=== PATIENT | female | born 1995 | race Caucasian/White ===

== ENCOUNTER → 2017-12-22 09:29 | Outpatient (POV) | payer MEDICAID, SELFPAY | PROVIDERS: Visit Provider Dentist | DX: Z00.00 Encounter for general adult medical examination without abnormal findings (principal) ==

== ENCOUNTER 2021-04-15 08:11 | Inpatient (IN) | payer MEDICAID, SELFPAY ==
[2021-04-15 08:12] VITALS: BP 131/93; PULSE 107; RESP 17; TEMP 37.2; O2SAT 98; BMI 38.9
--- NOTE | 2021-04-15 08:26 | HMH.EDGENADL ---
ED Disposition Clinical Impression: Peritonsillar abscess Disposition: Admitted as Observation Condition on Discharge: Fair - Critical Care Critical Care Time: No Attestation: On 04/15/21, the high probability of a clinically significant, sudden or life threatening deterioration of the following system(s) required my full and direct attention, intervention and personal management. The time I documented below is in addition to time spent performing reported procedures but includes the following listed in this critical care notation. Medical Decision Making - Zhang Inquiry Pt receiving controlled substance: No Zhang was queried for this patient: No Vital Signs: 04/15/21 08:12 04/15/21 12:00 Temperature 99.0 F 98.9 F Temperature Source Oral Oral Pulse Rate 97 H Pulse Rate [Right] 107 H Respiratory Rate 17 16 Blood Pressure 145/71 H Blood Pressure [Right Arm] 131/93 H Blood Pressure Mean [Right Arm] 105 02 Sat by Pulse Oximetry 98 - Lab Data Lab Results 04/15/21 08:49: Group A Strep Rapid Negative 04/15/21 08:49: SARS-CoV-2 (PCR) Not detected, Influenza A Untype (PCR) Not detected, Influenza Type B (PCR) Not detected 04/15/21 08:55: Sodium 141, Potassium 4.0, Chloride 101, Carbon Dioxide 29, Anion Gap 15.0, BUN 9, Creatinine 0.60, Estimated Creat Clear 224, Estimated GFR 121, Est GFR ( Amer) 146, Glucose 88, Calcium 9.6 04/15/21 08:55: WBC 10.8, RBC 4.84, Hgb 14.3, Hct 42.1, MCV 87.0, MCH 29.5, MCHC 33.9, RDW 13.1, Plt Count 271, MPV 8.2, Neut % (Auto) 76.6, Lymph % (Auto) 16.5, [place] % (Auto) 5.9, Eos % (Auto) 0.6, Baso % (Auto) 0.6, Neut # (Auto) 8.2 H, Lymph # (Auto) 1.8, [place] # (Auto) 0.6, Eos # (Auto) 0.1, Baso # (Auto) 0.1 04/15/21 08:55: Serum HCG, Qual Negative Result diagrams: 04/15/21 08:55 04/15/21 08:55 Orders (Tests/Meds): ED MEDICATIONS Generic Name Dose Route Start Last Admin Trade Name Preet PRN Reason Stop Dose Admin Sodium Chloride 1,000 mls @ 150 mls/hr 04/15/21 12:11 04/15/21 15:05 Sod Chlor 0.9% 1000ml Bag IV 05/15/21 12:10 150 mls/hr .[id number] ADRIENNE Administration Clindamycin Phosphate 600 mg/ 104 mls @ 100 mls/hr 04/15/21 15:00 04/15/21 16:09 Sodium Chloride IV 04/29/21 14:59 100 mls/hr Q6H ADRIENNE Administration Protocol Morphine Sulfate 4 mg 04/15/21 12:11 Morphine 4mg/Ml Syringe IV 05/15/21 12:10 Q4HP PRN Severe Pain Ondansetron HCl 4 mg 04/15/21 12:11 Ondansetron 4mg/2ml Vial IV 05/15/21 12:10 Q8HP PRN Nausea Discontinued Medications Generic Name Dose Route Start Last Admin Trade Name Preet PRN Reason Stop Dose Admin Dexamethasone Sodium Phosphate 10 mg 04/15/21 08:43 04/15/21 09:01 Dexamethasone 4mg/Ml 1ml Vial IV 04/15/21 08:44 10 mg ONCE ONE Administration Clindamycin Phosphate 600 mg/ 104 mls @ 100 mls/hr 04/15/21 08:52 04/15/21 09:07 Sodium Chloride IV 04/15/21 09:54 100 mls/hr ONCE ONE Administration Protocol Iopamidol 75 ml 04/15/21 10:00 04/15/21 10:01 Iopamidol-370 (76%);100ml Bottle IV 04/15/21 10:01 75 ml ONCE ONE Administration Ketorolac Tromethamine 30 mg 04/15/21 08:43 04/15/21 09:01 Ketorolac 30mg/Ml Vial IV 04/15/21 08:44 30 mg ONCE ONE Administration Sodium Chloride 1,000 ml 04/15/21 08:43 04/15/21 09:00 Sodium Chloride 0.9% 1000ml Bag IV 04/15/21 08:44 1,000 ml BOLUS ONE Administration Sodium Chloride 10 ml 04/15/21 10:00 04/15/21 10:01 Sodium Chloride 0.9% 10ml Syr (Rad Only) IV 04/15/21 10:01 10 ml ONCE ONE Administration ORDERS Category Date Time Status Consult to ENT [CONS] Routine Cons 04/15/21 10:49 Active Strep Screen Confirmation Stat Micro 04/15/21 08:49 Received - CT Data CT Scan: Other (soft tissue neck) Time Received: 10:[address] Reviewed: Yes: I have viewed the radiologist's interpretation Findings Narrative: PROCEDURE: CT SOFT TISSUE NECK W CON CLINICAL HISTORY: r/o per
--- NOTE | 2021-04-15 08:42 | CT_ITS ---
PROCEDURE: CT SOFT TISSUE NECK W CON CLINICAL HISTORY: r/o peritonsillar abscess COMPARISON: CT NECKW CT SOFT TISSUE NECK W/CONTRAST from 04/15/2013 TECHNIQUE: IV Contrast: 75 cc Optiray 350 Axial images obtained with sagittal and coronal reformats. All CT scans at the facility use one or more dose reduction, viz: automated exposure control, ma/kV adjustment per patient size (including targeted exams where dose is matched to indication, i.e. head), or iterative reconstruction technique. FINDINGS: There are bilateral peritonsillar fluid collections, on the right measuring 2.5 centimeters x 1.2 centimeters, and on the left measuring 2 centimeter x 1 centimeter. There are a few small air bubbles within the left peritonsillar fluid collection. There is slight mass effect on uvula at the level of the peritonsillar fluid collections. Epiglottis and aryepiglottic fold regions appear normal. There are a few small nonspecific bilateral cervical chain and submandibular lymph nodes likely reactive right greater than left. Salivary glands are normal. No intracranial abnormality. Orbits and globes are normal. Bilateral mucosal thickening in the maxillary sinuses. Thyroid gland is normal. No acute bony abnormality. Lung apices show no discrete abnormality. IMPRESSION: Bilateral peritonsillar fluid collections, right greater than left, compatible with bilateral peritonsillar abscesses, slight mass effect on the uvula at the level of the fluid collections. A few small non-specific bilateral cervical chain and submandibular lymph nodes, likely reactive. Dictated by: Alfonzo Aviles MD 04/15/2021 10:22 Alfonzo Aviles MD in [place] 04/15/2021 10:22
[2021-04-15 09:07] LABS: Coronavirus 19, PCR Not Detected (NotDetected); Influenza A, PCR Not Detected (NotDetected); Influenza B, PCR Not Detected (NotDetected)
[2021-04-15 09:09] LABS: Basophils # 0.1 K/mm3 (0-0.2); Basophils % 0.6 % (0.1-2.0); Eosinophils # 0.1 K/mm3 (0.0-0.4); Eosinophils % 0.6 % (0.1-12.0); Hematocrit 42.1 % (37.0-47.0); Hemoglobin 14.3 g/dL (12.2-16.2); Lymphocytes # 1.8 K/mm3 (0.7-4.5); Lymphocytes % 16.5 % (10-50); Mean Corpuscular HGB Conc 33.9 g/dL (31.8-35.4); Mean Corpuscular Hemoglobin 29.5 pg (27.0-31.2); Mean Platelet Volume 8.2 fl (7.4-10.4); Monocytes # 0.6 K/mm3 (0.1-1.0); Monocytes % 5.9 % (1.7-9.3); Neutrophils # 8.2 K/mm3 (1.8-7.8); Neutrophils % 76.6 % (37.0-80.0); Platelet Count 271 K/mm3 (142-424); Red Blood Count 4.84 M/mm3 (4.20-5.40); Red Cell Distribution Width 13.1 % (11.5-17.5); White Blood Count 10.8 K/mm3 (4.8-10.8)
[2021-04-15 09:22] LABS: Chloride 101 mmol/L (98-107); Sodium 141 mmol/L (136-145)
[2021-04-15 09:25] LABS: Blood Urea Nitrogen 9 mg/dl (7-17); Carbon Dioxide 29 mmol/L (22.0-30.0); Creatinine Clearance Estimated 224 mL/min (50-200); Estimated Glomerular Filt Rate 121 ml/min (>60); GFR (African American) 146 ML/MIN (>60)
[2021-04-15 09:26] LABS: Calcium 9.6 mg/dl (8.4-10.2); Glucose 88 mg/dl (74-100)
[2021-04-15 09:27] LABS: HCG Qualitative, Serum Negative (Negative)
[2021-04-15 09:28] LABS: Strep Scrn Group A (Rapid) Negative (Negative)
--- NOTE | 2021-04-15 10:40 | PC.NURSE ---
DR. BELL CONSULTED WITH DR. LALA
--- NOTE | 2021-04-15 10:42 | PC.NURSE ---
DR. BELL CONSULTING WITH DR. MEDRANO AT THIS TIME
--- NOTE | 2021-04-15 11:26 | PC.NURSE ---
spoke with house principal at this time she is calling to have pt admitted in the system at this time.
[2021-04-15 11:57] VITALS: BMI 39.1
[2021-04-15 12:00] VITALS: BP 145/71; PULSE 97; RESP 16; TEMP 37.2; O2SAT 98
--- NOTE | 2021-04-15 12:33 | HMH.HP ---
*Admission Date: 04/15/21 *Chief complaint: sore throat *History of present illness: Ms. Mccloud is a 25 yo female with a 3-day history of a right-sided sore throat that radiates into her right ear. She states she saw a physician and her primary care office on Tuesday and she was started on Zithromax. She was unable to swallow the pill. She saw her family physician on Tuesday and was sent for an ultrasound. She had the ultrasound yesterday and was informed that there was no peritonsillar abscess. This morning she woke up and was unable to open her mouth, swallow pills, or eat solid foods. She denies any fever. She was previously given an injection of Rocephin, but has been unable to swallow the Zithromax or the steroids that she was given by her PCP. She states she has had problems with her tonsils ever since she was young. She has had recurrent strep throat and back in 2012 she had an abscess of her tongue. 2 years ago she had a very similar situation where she had a very sore throat and was unable to open her mouth. She states she was on numerous antibiotics for weeks before she finally improved. She had a soft tissue CT of the neck in the ER showing bilateral peritonsilar abscesses. She was started on IV antibiotics and steroids and was given toradol for pain. Dr. Waggoner was consulted. [facility] History I have reviewed the patient's past medical history: Yes Medical History: Reports:: Anxiety, Depression Denies:: Chronic Obstructive Pulmonary Disease (COPD), Diabetes Mellitus Type 2, Hyperlipidemia, Hypertension *Have you ever received a pneumonia vaccine?: No *Have you received a flu vaccine this season?: No Other Medical History: Reports: Other (Chiari malformation) Other Surgeries: Yes: Other ([place] teeth, cyst removed from tailbone) - *Social History Smoking Status: Current every day smoker Tobacco Type: cigarettes Alcohol Intake: never *Occupational Status:: unemployed *Travel in the last 8 weeks: None Family Hx:: Heart Attack, Hyperlipidemia, Hypertension, Stroke Review of Systems - Constitutional Denies chills, Denies fever(s), Denies weakness - Eyes Denies blurry vision, Denies double vision - ENT Reports pain with swallowing, Reports sore throat, Denies nasal congestion - *Cardiovascular Denies chest pain, Denies shortness of breath - *Respiratory Denies chest congestion, Denies cough, Denies shortness of breath - *Gastrointestinal Denies abdominal pain, Denies loose stools, Denies nausea, Denies vomiting - *Genitourinary Denies difficulty urinating, Denies painful urination - *Musculoskeletal Denies joint pain - *Neurologic Reports headache(s), Denies dizziness, Denies weakness Meds Home Medications Medication Instructions Recorded Confirmed Type Azithromycin 250 mg PO DAILY 04/15/21 04/15/21 History Cyanocobalamin (Vitamin B-12) 1 ml IM WEEKLY 04/15/21 04/15/21 History [Cyanocobalamin 1,000mcg/mL Vial] Multivit-Min/Ferrous Fumarate 15 mg PO DAILY 04/15/21 04/15/21 History [Multivitamin with Minerals Tab] Omeprazole 40 mg PO DAILY 04/15/21 04/15/21 History predniSONE [Deltasone 20mg 20 mg PO BID 04/15/21 04/15/21 History tablet] Allergies Allergy/AdvReac Type Severity Reaction Status Date / Time sulfamethoxazole Allergy Mild Nausea Verified 04/15/21 12:20 [From Bactrim] trimethoprim [From Bactrim] Allergy Mild Nausea Verified 04/15/21 12:20 Penicillins Allergy Unknown Unknown Verified 04/15/21 12:20 allergy reaction ciprofloxacin Allergy Unknown Verified 04/15/21 12:20 allergy reaction Exam Vital signs and Labs for Last 24 Hours: Temp Pulse Resp BP Pulse Ox 98.9 F 97 H 16 145/71 H 98 04/15/21 12:00 04/15/21 12:00 04/15/21 12:00 04/15/21 12:00 04/15/21 08:12 Laboratory Results - last 24 hr 04/15/21 08:49: Group A Strep Rapid Negative 04/15/21 08:49: SARS-CoV-2 (PCR) Not detected, Influenza A Untype (PCR) Not detected, I
[2021-04-15 12:37] VITALS: BP 115/66; PULSE 106; RESP 18; TEMP 37.2; O2SAT 100
--- NOTE | 2021-04-15 14:13 | HMH.PHAVTE ---
[facility] Pharmacy VTE Monitoring - Patient Demographics Admission date: 04/15/21 Report Date: 04/15/21 Time: 14:13 Allergies/Adverse Reactions: Patient Allergies sulfamethoxazole [From Bactrim] Allergy (Mild, Verified 04/15/21 12:20) Nausea trimethoprim [From Bactrim] Allergy (Mild, Verified 04/15/21 12:20) Nausea Penicillins Allergy (Unknown, Verified 04/15/21 12:20) Unknown allergy reaction ciprofloxacin Allergy (Verified 04/15/21 12:20) Unknown allergy reaction Height: 1.6 m Weight: 100.244 kg Patient Problems: Current Active Problems Peritonsillar abscess (Acute) Anxiety (Chronic) - VTE Risk Labs: VTE Related Lab Results Hgb 14.3 g/dL (12.2-16.2) 04/15/21 08:55 Hct 42.1 % (37.0-47.0) 04/15/21 08:55 Plt Count 271 K/mm3 (142-424) 04/15/21 08:55 BUN 9 mg/dl (7-17) 04/15/21 08:55 Creatinine 0.60 mg/dl (0.52-1.04) 04/15/21 08:55 Estimated Creat Clear 224 mL/min (50-200) 04/15/21 08:55 Was VTE Risk Assessment Performed: Yes VTE Score: 0 VTE Risk Level: Very Low Risk Clinical Trial Participant: No - Prophylaxis VTE Prophylaxis Ordered?: Yes Types of VTE Prophylaxis: TEDS Knee High
[2021-04-15 15:00] VITALS: BP 119/62; PULSE 91; RESP 18; TEMP 37.3; O2SAT 100
--- NOTE | 2021-04-15 16:31 | PC.NURSE ---
PT IS RESTING IN BED WITH FAMILY IN THE ROOM. NO COMPLAINTS OF PAIN. SINCE ARRIVING TO THE FLOOR PT HAS BEEN ABLE TO TOLERATE FULL LIQUIDS. PT STATES THE RT SIDE OF HER THROAT IS MORE TENDER THAN THE LEFT. RT SIDE IS MORE SWOLLEN THAN THE LEFT (ASSESSED WITH ) PT STATED SHE DID HAVE SOME DRAINAGE THIS MORNING BEFORE COMING TO THE HOSPITAL AND WAS UNABLE TO SWALLOW PILLS. PT WILL BE NPO AFTER MIDNIGHT FOR CONSULT IN THE MORNING. LUNG SOUNDS CLEAR. ABDOMEN SOFT/NON TENDER WITH ACTIVE BOWEL SOUNDS. AMBULATES TO THE BATHROOM AND AROUND THE ROOM W/O DIFFICULTY. PT WAS ABLE TO TOLERATE TAKING A SHOWER THIS SHIFT.
[2021-04-15 19:41] VITALS: BP 124/75; PULSE 92; RESP 18; TEMP 36.9; O2SAT 99
--- NOTE | 2021-04-16 03:36 | PC.NURSE ---
Pt rested well all shift. No acute changes. Pt is A/O x4. Lungs are CTA. Pt denies pain. Admin meds per MAR. Pt had tolerated full liquids diet, and has been NPO since midnight. Pt is to have a consult this morning with . VSS, pt is able to make needs known to staff. Call light within reach, No concerns at this time.
[2021-04-16 04:00] VITALS: BP 106/59; PULSE 95; RESP 17; TEMP 37; O2SAT 100
[2021-04-16 05:31] VITALS: BMI 38.4
[2021-04-16 07:56] VITALS: BP 112/55; PULSE 86; RESP 16; TEMP 36.9; O2SAT 100
--- NOTE | 2021-04-16 08:21 | P.PN_ITS ---
Internal Medicine - PN: Subj *Date: 04/16/21 *Time: 08:21 Interval history: Patient states her pain is improved slightly from yesterday. She still has pain on the right side and into her right ear that runs down her throat. She was able to sleep a little bit better last night. She is still unable to open her mouth. Exam Vital signs and Labs for Last 24 Hours: Temp Pulse Resp BP Pulse Ox 98.5 F 86 16 112/55 L 100 04/16/21 07:56 04/16/21 07:56 04/16/21 07:56 04/16/21 07:56 04/16/21 07:56 Laboratory Results - last 24 hr 04/15/21 08:49: Group A Strep Rapid Negative 04/15/21 08:49: SARS-CoV-2 (PCR) Not detected, Influenza A Untype (PCR) Not detected, Influenza Type B (PCR) Not detected 04/15/21 08:55: Sodium 141, Potassium 4.0, Chloride 101, Carbon Dioxide 29, Anion Gap 15.0, BUN 9, Creatinine 0.60, Estimated Creat Clear 224, Estimated GFR 121, Est GFR ( Amer) 146, Glucose 88, Calcium 9.6 04/15/21 08:55: WBC 10.8, RBC 4.84, Hgb 14.3, Hct 42.1, MCV 87.0, MCH 29.5, MCHC 33.9, RDW 13.1, Plt Count 271, MPV 8.2, Neut % (Auto) 76.6, Lymph % (Auto) 16.5, [place] % (Auto) 5.9, Eos % (Auto) 0.6, Baso % (Auto) 0.6, Neut # (Auto) 8.2 H, Lymph # (Auto) 1.8, [place] # (Auto) 0.6, Eos # (Auto) 0.1, Baso # (Auto) 0.1 04/15/21 08:55: Serum HCG, Qual Negative I & O for Last 24 hours: Intake & Output 04/13/21 04/14/21 04/15/21 04/16/21 11:59 11:59 11:59 11:59 Intake Total 360 / 360 Balance 360 / 360 Weight 221 lb 217 lb - Constitutional no acute distress - *Routine HEENT Exam Comments: Still unable to open mouth due to pain - *Routine Neck Exam Present: supple. Absent: lymphadenopathy - *Routine Respiratory Exam Present: CTA bilaterally - *Routine Cardiovascular Exam Present: RRR - *Routine Abdominal Exam Present: soft, normoactive bowel sounds. Absent: tenderness - *Routine Extremities Exam Absent: cyanosis, clubbing, edema - *Routine Skin Exam Present: warm. Absent: rash - *Routine Neurological Exam Present: alert, oriented X3 Assessment and Plan (1) Peritonsillar abscess Status: Acute Category: Medical Code(s): J36 - Peritonsillar abscess (2) Anxiety Status: Chronic Category: Medical Code(s): F41.9 - Anxiety disorder, uns pecified - Assessment and plan all Dx Assessment and Plan for all problems:: We will continue IV antibiotics. Dr. Waggoner to see patient today.
--- NOTE | 2021-04-16 10:27 | HMH.CONS ---
*Admission Date: 04/15/21 *Reason for consult:: possible right sided tonsillar abscess *History of present illness: x5 days [facility] History Medical History: Reports:: Anxiety, Depression Denies:: Cancer, Chronic Obstructive Pulmonary Disease (COPD), Diabetes Mellitus Type 1, Diabetes Mellitus Type 2, Hyperlipidemia, Hypertension, MRSA *Have you ever received a pneumonia vaccine?: No *Have you received a flu vaccine this season?: No Other Medical History: Reports: Other (Chiari malformation) Other Surgeries: Yes: Other ([place] teeth, cyst removed from tailbone) Amputation: No Fractures: No - *Social History Last grade of school completed: High school graduate Smoking Status: Former smoker Tobacco Type: cigarettes Alcohol Intake: never *Occupational Status:: unemployed Housing: apartment Household Members: friend(s) *Travel in the last 8 weeks: None - Psychiatric History Pschychiatric History:: Reports:: Anxiety, Depression Family Hx:: Heart Attack, Hyperlipidemia, Hypertension, Stroke Review of Systems - *Neurologic Reports headache(s), Denies dizziness, Denies weakness Meds Home Medications Medication Instructions Recorded Confirmed Type Azithromycin 250 mg PO DAILY 04/15/21 04/15/21 History Cyanocobalamin (Vitamin B-12) 1 ml IM WEEKLY 04/15/21 04/15/21 History [Cyanocobalamin 1,000mcg/mL Vial] Multivit-Min/Ferrous Fumarate 1 tab PO DAILY 04/15/21 04/15/21 History [Multivitamin with Minerals Tab] Omeprazole 40 mg PO DAILY 04/15/21 04/15/21 History predniSONE [Deltasone 20mg 20 mg PO BID 04/15/21 04/15/21 History tablet] Allergies Allergy/AdvReac Type Severity Reaction Status Date / Time sulfamethoxazole Allergy Mild Nausea Verified 04/15/21 12:20 [From Bactrim] trimethoprim [From Bactrim] Allergy Mild Nausea Verified 04/15/21 12:20 Penicillins Allergy Unknown Unknown Verified 04/15/21 12:20 allergy reaction ciprofloxacin Allergy Unknown Verified 04/15/21 12:20 allergy reaction Exam Vital signs and Labs for Last 24 Hours: Temp Pulse Resp BP Pulse Ox 98.5 F 86 16 112/55 L 100 04/16/21 07:56 04/16/21 07:56 04/16/21 07:56 04/16/21 07:56 04/16/21 07:56 I & O for Last 24 hours: Intake & Output 04/13/21 04/14/21 04/15/21 04/16/21 23:59 23:59 23:59 23:59 Intake Total 360 / 360 Balance 360 / 360 Weight 221 lb 217 lb - *Routine HEENT Exam Eye: Present: PERRL ENT: Present: mucous membranes moist Comments: This patient was referred from the emergency room because of a worsening sore throat with developing trismus and a possible right tonsillar abscess. She was started on IV antibiotics and when examined the following morning the trismus was less pronounced and she was able to open her mouth better and she was feeling better. Examination revealed some minimal cellulitis around the right tonsil with acute inflammation of both tonsils, there was no cervical lymphadenopathy. Given this history of recurrent acute tonsillitis in the cellulitis in the right tonsillar area with possible incipient abscess it she would be well advised to have a tonsillectomy. Once her condition stabilizes and she finishes her course of the antibiotics she will follow-up in the clinic and we will schedule a tonsillectomy for her. Internal Medicine - CN: Reslt - Labs CBC & Chem 7: 04/15/21 08:55 04/15/21 08:55 Assessment and Plan (1) Peritonsillar abscess Status: Acute Category: Medical Code(s): J36 - Peritonsillar abscess (2) Anxiety Status: Chronic Category: Medical Code(s): F41.9 - Anxiety disorder, unspecified
--- NOTE | 2021-04-16 11:42 | PC.NURSE ---
Report given Trevor Lang RN.
[2021-04-16 15:42] VITALS: BP 102/57; PULSE 86; RESP 17; TEMP 36.8; O2SAT 100
--- NOTE | 2021-04-16 18:30 | PC.NURSE ---
Pt independent w/ ADL's. Showered, received linen change. No complaints voiced. Tolerating full liquid. Call gene w/in reach.
[2021-04-16 19:50] VITALS: BP 100/55; PULSE 76; RESP 18; TEMP 36.9; O2SAT 100
--- NOTE | 2021-04-17 02:56 | PC.NURSE ---
Patient oriented and alert times 4. Patient has slept most of this shift. ABx (clindamycin) administered as per order. Patient admitted for peritonsilar abscess. Patient will more than likely be discharged home today. Will continue to monitor for any acute changes.
[2021-04-17 03:18] VITALS: BP 99/52; PULSE 89; RESP 16; TEMP 36.8; O2SAT 100
[2021-04-17 05:10] VITALS: BMI 38.5
[2021-04-17 07:44] VITALS: BP 121/71; PULSE 85; RESP 16; TEMP 36.7; O2SAT 100
[2021-04-17 08:00] VITALS: PULSE 85; RESP 16; O2SAT 100
--- NOTE | 2021-04-17 08:36 | HMH.ACPN2 ---
Internal Medicine - PN: Subj *Date: 04/17/21 *Time: 08:36 Interval history: Patient states her throat is starting to hurt a little bit more today. She is able to open her mouth wider but states she feels like there is more swelling in the back of her throat today. She thinks the steroids in the emergency room did help with the swelling and is requesting another dose today. She was seen in consultation by Dr. Waggoner who feels that she can be discharged today on antibiotics and will need to follow-up in his office and have a tonsillectomy. Exam Vital signs and Labs for Last 24 Hours: Temp Pulse Resp BP Pulse Ox 98.1 F 85 16 121/71 100 04/17/21 07:44 04/17/21 07:44 04/17/21 07:44 04/17/21 07:44 04/17/21 07:44 I & O for Last 24 hours: Intake & Output 04/14/21 04/15/21 04/16/21 04/17/21 11:59 11:59 11:59 11:59 Intake Total 360 / 360 5480 / 5480 Balance 360 / 360 5480 / 5480 Weight 221 lb 217 lb 217 lb 9 oz Microbiology Reports for the Last 24 Hours: Microbiology 04/15/21 08:49 Throat Group A Streptococcus Screen (ANNA) - Final Negative for Group A Streptococcus. - Constitutional no acute distress - *Routine Cardiovascular Exam Present: RRR - *Routine Abdominal Exam Present: soft, normoactive bowel sounds. Absent: tenderness - *Routine Extremities Exam Absent: cyanosis, clubbing, edema - *Routine Skin Exam Present: warm. Absent: rash - *Routine Neurological Exam Present: alert, oriented X3 Assessment and Plan (1) Peritonsillar abscess Status: Acute Category: Medical Code(s): J36 - Peritonsillar abscess (2) Anxiety Status: Chronic Category: Medical Code(s): F41.9 - Anxiety disorder, unspecified - Assessment and plan all Dx Assessment and Plan for all problems:: Possible discharge home today on continued oral antibiotics. Will give a dose of dexamethasone 4 mg IV as this is what helped her in the emergency room. She will follow up with Dr. Waggoner for tonsillectomy.
[2021-04-17 08:57] LABS: Basophils % 0.6 % (0.1-2.0); Eosinophils # 0.1 K/mm3 (0.0-0.4); Eosinophils % 1.8 % (0.1-12.0); Hematocrit 35.9 % (37.0-47.0); Hemoglobin 11.9 g/dL (12.2-16.2); Lymphocytes # 2.5 K/mm3 (0.7-4.5); Lymphocytes % 48.6 % (10-50); Mean Corpuscular HGB Conc 33.1 g/dL (31.8-35.4); Mean Corpuscular Hemoglobin 29.5 pg (27.0-31.2); Mean Corpuscular Volume 89.2 fl (81-99); Mean Platelet Volume 8.5 fl (7.4-10.4); Monocytes # 0.4 K/mm3 (0.1-1.0); Neutrophils # 2.1 K/mm3 (1.8-7.8); Platelet Count 230 K/mm3 (142-424); Red Blood Count 4.03 M/mm3 (4.20-5.40); White Blood Count 5.1 K/mm3 (4.8-10.8)
[2021-04-17 08:58] LABS: Chloride 108 mmol/L (98-107); Potassium 3.6 mmoL/L (3.5-5.1); Sodium 141 mmol/L (136-145)
[2021-04-17 09:01] LABS: Blood Urea Nitrogen 3 mg/dl (7-17); Creatinine Clearance Estimated 266 mL/min (50-200); Estimated Glomerular Filt Rate 149 ml/min (>60); GFR (African American) 180 ML/MIN (>60)
[2021-04-17 09:02] LABS: Anion Gap 10.6 mEq/L (5-15); Carbon Dioxide 26 mmol/L (22.0-30.0); Glucose 92 mg/dl (74-100)
[2021-04-17 14:27] LABS: Calcium 8.2 mg/dl (8.4-10.2)
--- NOTE | 2021-04-17 14:46 | HMH.DCSUM ---
General - General Admission date:: 04/15/21 Discharge date: 04/17/21 HPI HPI: Ms. Mccloud is a 25 yo female with a 3-day history of a right-sided sore throat that radiates into her right ear. She states she saw a physician and her primary care office on Tuesday and she was started on Zithromax. She was unable to swallow the pill. She saw her family physician on Tuesday and was sent for an ultrasound. She had the ultrasound yesterday and was informed that there was no peritonsillar abscess. This morning she woke up and was unable to open her mouth, swallow pills, or eat solid foods. She denies any fever. She was previously given an injection of Rocephin, but has been unable to swallow the Zithromax or the steroids that she was given by her PCP. She states she has had problems with her tonsils ever since she was young. She has had recurrent strep throat and back in 2012 she had an abscess of her tongue. 2 years ago she had a very similar situation where she had a very sore throat and was unable to open her mouth. She states she was on numerous antibiotics for weeks before she finally improved. She had a soft tissue CT of the neck in the ER showing bilateral peritonsilar abscesses. She was started on IV antibiotics and steroids and was given toradol for pain. Dr. Waggoner was consulted. Hospital Course Hospital Course: The patient was started on IV clindamycin and given a dose of steroids in the emergency room. She was admitted and Dr. Waggoner was consulted. He saw her on 04/16/2021. Her pain was slightly less. His exam revealed cellulitis around the right tonsil with acute inflammation of both tonsils. He felt given her history of recurrent tonsillitis and the cellulitis of the right tonsillar area, she should have a tonsillectomy. He wanted her to continue on antibiotics and follow-up in his office to schedule a tonsillectomy. The patient did feel like on 04/17/2021 that she had more swelling in the back of her throat. She thought the steroids given to her in the emergency room had helped, therefore she was given a dose of IV steroids before discharge. She will be discharged on antibiotics and will follow up with Dr. Waggoner in his office. Objective Vital signs: Temp Pulse Resp BP Pulse Ox 98.1 F 85 16 121/71 100 04/17/21 07:44 04/17/21 08:00 04/17/21 08:00 04/17/21 07:44 04/17/21 08:00 Narrative: - Constitutional no acute distress - *Routine HEENT Exam Head: Present: normocephalic Eye: Present: EOMI, PERRL ENT: Present: other (trismus, unable to fully visualize the back of the throat due to the patient's difficulty to open her mouth) - *Routine Neck Exam Present: supple, lymphadenopathy - *Routine Respiratory Exam Present: CTA bilaterally - *Routine Cardiovascular Exam Present: RRR - *Routine Abdominal Exam Present: soft, normoactive bowel sounds. Absent: tenderness - *Routine Rectal Exam Rectal:: deferred - *Routine Genitalia Exam Genitalia:: deferred - *Routine Extremities Exam Absent: cyanosis, clubbing, edema - *Routine Skin Exam Present: warm. Absent: rash - *Routine Neurological Exam Present: alert, oriented X3 Results Labs on day of discharge: Labs from last 24 hours 04/17/21 04/17/21 08:44 08:44 WBC 5.1 D RBC 4.03 L Hgb 11.9 L Hct 35.9 L MCV 89.2 MCH 29.5 MCHC 33.1 RDW 13.0 Plt Count 230 MPV 8.5 Neut % (Auto) 41.0 Lymph % (Auto) 48.6 [place] % (Auto) 8.0 Eos % (Auto) 1.8 Baso % (Auto) 0.6 Neut # (Auto) 2.1 Lymph # (Auto) 2.5 [place] # (Auto) 0.4 Eos # (Auto) 0.1 Baso # (Auto) 0.0 Sodium 141 Potassium 3.6 Chloride 108 H Carbon Dioxide 26 Anion Gap 10.6 BUN 3 L D Creatinine 0.50 L Estimated Creat Clear 266 Estimated GFR 149 Est GFR ( Amer) 180 D Glucose 92 Calcium 8.2 L D DS: Diagnosis - Discharge Diagnosis (1) Peritonsillar abscess Status: Acute
== END 2021-04-17 10:15 | disposition home or self-care (01) | DRG 153 ==
LOC: ER 10:43 → 2ND 12:22
PROVIDERS: Admitting Provider Family Medicine; Emergency Provider Emergency Medicine; PCP Family Medicine; Visit Provider Family Medicine
DX: J36 Peritonsillar abscess (principal); Z87.891 Personal history of nicotine dependence
CPT/HCPCS: 36415; 70491; 80048; 84703; 85025; 87430; 99284; Q9967; U0003

== ENCOUNTER 2021-08-12 11:45 | Emergency (ER) | payer MEDICAID, SELFPAY ==
--- NOTE | 2021-08-12 11:45 | ECG_ITS ---
APPROVED REPORT Exam: Resting ECG HR:93 bpm ECG Measurements Heart Rate 93 AXES WY 138 P 69 QRSd 76 QRS 51 QT 348 T 43 QTc 432 Conclusion Normal sinus rhythm Normal ECG Electronically signed by : Baldev Jerez MD 08/12/2021 21:16:26
[2021-08-12 11:46] VITALS: BP 131/82; PULSE 90; RESP 13; TEMP 36.8; O2SAT 100; BMI 38.9
--- NOTE | 2021-08-12 12:02 | XR_ITS ---
PROCEDURE: XR CHEST 2V CLINICAL HISTORY: cp Chest pain and tightness COMPARISON: CR CXR CHEST(2 VIEWS-NOT PORTABLE) from 07/03/2014 FINDINGS: The cardiomediastinal silhouette and pulmonary vascularity are within normal limits. The lungs are clear without infiltrates, suspicious nodules, or pleural effusions. No acute bony abnormalities. IMPRESSION: No acute findings. Dictated by: Bean Beth MD 08/12/2021 13:16 Bean Beth MD in [place] 08/12/2021 13:16
--- NOTE | 2021-08-12 12:40 | HMH.EDGENADL ---
ED Disposition Clinical Impression: Atypical chest pain Disposition: Home, Self-Care Condition on Discharge: Good Referrals: Provider,Referral, [Referring] - - Critical Care Critical Care Time: No Attestation: On 08/12/21, the high probability of a clinically significant, sudden or life threatening deterioration of the following system(s) required my full and direct attention, intervention and personal management. The time I documented below is in addition to time spent performing reported procedures but includes the following listed in this critical care notation. Medical Decision Making - Medical Records Medical records reviewed: Yes: I reviewed the patient's medical records. - Zhang Inquiry Pt receiving controlled substance: No Vital Signs: 08/12/21 11:46 Temperature 98.2 F Temperature Source Oral Pulse Rate [Right Radial] 90 Respiratory Rate 13 Blood Pressure [Right Arm] 131/82 Blood Pressure Mean [Right Arm] 98 Blood Pressure Source [Right Arm] Automatic Cuff Blood Pressure Position [Right Arm] Sitting 02 Sat by Pulse Oximetry 100 Oxygen Delivery Method Room Air - Lab Data Lab Results 08/12/21 12:53: WBC 6.3, RBC 4.72, Hgb 14.5, Hct 43.5, MCV 92.1, MCH 30.6, MCHC 33.3, RDW 12.3, Plt Count 300, MPV 7.8, Neut % (Auto) 58.8, Lymph % (Auto) 32.9, [place] % (Auto) 6.4, Eos % (Auto) 1.3, Baso % (Auto) 0.7, Neut # (Auto) 3.7, Lymph # (Auto) 2.1, [place] # (Auto) 0.4, Eos # (Auto) 0.1, Baso # (Auto) 0.0 08/12/21 12:53: Sodium 138, Potassium 4.1, Chloride 106, Carbon Dioxide 26, Anion Gap 10.1, BUN 6 L, Creatinine 0.40 L, Estimated Creat Clear 333 H, Estimated GFR 191, Est GFR ( Amer) 232, Glucose 93, Calcium 9.8, Troponin I < 0.01 08/12/21 12:53: D-Dimer 0.55 H 08/12/21 13:30: Urine HCG, Qual Negative Result diagrams: 08/12/21 12:53 08/12/21 12:53 Orders (Tests/Meds): ED MEDICATIONS Discontinued Medications Generic Name Dose Route Start Last Admin Trade Name Preet PRN Reason Stop Dose Admin Sodium Chloride 1,000 mls @ 999 mls/hr 08/12/21 14:08 08/12/21 14:22 Sod Chlor 0.9% 1000ml Bag IV 08/12/21 15:08 999 mls/hr .Q1H1M ONE Administration ORDERS Category Date Time Status Troponin I Q3H Lab 08/12/21 15:15 Ordered Troponin I Q3H Lab 08/12/21 18:15 Ordered Medical Decision Narrative: Patient is a 26-year-old female otherwise healthy with a history of Chiari malformation, presents to the ED today for further evaluation of shortness of breath. Patient is overall well-appearing on initial evaluation in no acute distress, vital signs are stable, patient able to ambulate and was seen doing so in the emergency department without significant difficulty. Order CBC CMP troponin, D-dimer, chest x-ray two-view for further evaluation, differential including pneumonia, costochondritis, asthma, pulmonary embolism, pleural effusion. I have had extensive discussion with patient regarding possible differential diagnoses for these, patient is mostly concerned that she could have a pneumonia, or a blood clot in her lungs that she has been reading about this on the Internet. Patient's lab evaluation he checks x-ray have returned with no evidence of focal consolidation or pneumonia, no significant white blood cell count, D-dimer slightly elevated at 0.55, given low patient for pulmonary embolism, patient rules out under the YEARS criteria, which low suspicion for pulmonary embolism the D-dimer cutoff limit would be 1000. I have discussed this with the patient, however she initially wished to proceed with a scan, however patient's IV infiltrated while in CT scan, and a new IV was started the patient became very anxious, stating that she has now decided she does not want to get this CT scan anymore, stating that she has had a lot of CT scans in the past of her chest and abdomen, and she does not want the radiation at this time. I discussed with the patient that even though she does not want the
[2021-08-12 13:04] LABS: Basophils % 0.7 % (0.1-2.0); Eosinophils # 0.1 K/mm3 (0.0-0.4); Eosinophils % 1.3 % (0.1-12.0); Hematocrit 43.5 % (37.0-47.0); Hemoglobin 14.5 g/dL (12.2-16.2); Lymphocytes # 2.1 K/mm3 (0.7-4.5); Lymphocytes % 32.9 % (10-50); Mean Corpuscular HGB Conc 33.3 g/dL (31.8-35.4); Mean Corpuscular Hemoglobin 30.6 pg (27.0-31.2); Mean Corpuscular Volume 92.1 fl (81-99); Mean Platelet Volume 7.8 fl (7.4-10.4); Monocytes # 0.4 K/mm3 (0.1-1.0); Monocytes % 6.4 % (1.7-9.3); Neutrophils # 3.7 K/mm3 (1.8-7.8); Neutrophils % 58.8 % (37.0-80.0); Platelet Count 300 K/mm3 (142-424); Red Blood Count 4.72 M/mm3 (4.20-5.40); Red Cell Distribution Width 12.3 % (11.5-17.5); White Blood Count 6.3 K/mm3 (4.8-10.8)
[2021-08-12 13:09] LABS: Anion Gap 10.1 mEq/L (5-15); Blood Urea Nitrogen 6 mg/dl (7-17); Calcium 9.8 mg/dl (8.4-10.2); Carbon Dioxide 26 mmol/L (22.0-30.0); Chloride 106 mmol/L (98-107); Creatinine Clearance Estimated 333 mL/min (50-200); Estimated Glomerular Filt Rate 191 ml/min (>60); GFR (African American) 232 ML/MIN (>60); Glucose 93 mg/dl (74-100); Potassium 4.1 mmoL/L (3.5-5.1); Sodium 138 mmol/L (136-145)
[2021-08-12 13:16] LABS: D-Dimer 0.55 ug/mL (0.0-0.5)
[2021-08-12 13:38] LABS: Troponin I < 0.01 ng/ml (0.00-0.034)
--- NOTE | 2021-08-12 14:30 | PC.NURSE ---
Notified rad of CT with PE Protocol
[2021-08-12 14:51] LABS: Urine Pregnancy, HCG Qual. Negative (Negative)
--- NOTE | 2021-08-12 15:25 | HMH.ITSTN ---
patient was up in CT for a scan PE Chest to Rule out PE--The IV she had would not flush. Josue the batch room technician called and January from ER came up and started a new IV for the scan. Right after the new IV was started the patient started to complain and wanted to have IV removed. January explained we needed an IV for the scan patient refused the scan and had IV taken out by ER nurse. scan cancelled patient refused
[2021-08-12 16:09] VITALS: BP 117/69; PULSE 98; RESP 16; TEMP 36.8; O2SAT 100
== END 2021-08-12 16:09 | disposition home or self-care (01) ==
PROVIDERS: Emergency Provider Student in an Organized Health Care Education/Training Program; PCP Family Medicine
DX: R07.89 Other chest pain (principal); R09.1 Pleurisy; F41.8 Other specified anxiety disorders; Z87.891 Personal history of nicotine dependence; Z88.0 Allergy status to penicillin; Z88.2 Allergy status to sulfonamides
CPT/HCPCS: 71046; 80048; 81025; 84484; 85025; 85378; 93005; 93041; 96365; 99283

== ENCOUNTER 2022-07-11 12:50 | Emergency (ER) | payer MEDICAID, SELFPAY ==
[2022-07-11 13:01] VITALS: BP 129/88; PULSE 96; RESP 18; TEMP 36.8; O2SAT 100; BMI 44.9
[2022-07-11 13:10] VITALS: BP 145/77; PULSE 101; RESP 18; TEMP 36.7; O2SAT 99; BMI 44.9
--- NOTE | 2022-07-11 13:19 | EXP.UTC ---
Discharge Plan Disposition Patient Disposition: Home, Self-Care Condition: Good Prescriptions Prescriptions: New methylprednisolone 4 mg Tablets,Dose Pack 4 mg PO DIRECTED Qty: 21 0RF azithromycin [Zithromax] 250 mg tablet 250 mg PO UD DOSE PK Qty: 6 0RF Rx Instructions: Take two (2) tablets today, then one (1) tablet days #2 thru #5 No Action prednisone 20 MG tablet 20 mg PO BID Rx Instructions: patient judi day two of a three day supply omeprazole 40 MG capsule,delayed release(DR/EC) 40 mg PO DAILY cyanocobalamin (vitamin B-12) 1,000 MCG/ML solution 1 ml IM WEEKLY Rx Instructions: 1ml IM once per week [id number] fumarate 15 MG tablet 1 tab PO DAILY Referrals Follow up/Referrals: Anya Rivera [Primary Care Provider] - See instructions Activity Restrictions/Add. Instructions Additional Instructions/Restrictions: Drink plenty of fluids. Take tylenol or ibuprofen for pain or fever. Take the medications as directed. Follow up with your regular doctor. GO TO THE ER FOR ANY WORSENING SYMPTOMS Clinical Impressions Clinical Impression: Otitis media Instructions Patient Instructions: DI for Otitis Media (Middle Ear Infection)-Child Discharge ED Provider: Alfonzo Anderson [facility] – [place] HPI General Stated complaint: left ear pain, left jaw pain Mode of Arrival: Ambulatory Source of Information: Patient Limitations: No Limitations Time Seen by Provider: 07/11/22 13:19 Description of Symptoms (Recalled from Triage Doc. by RN): c/o left ear pain that started this morning History of Present Illness Provider Complaint: She c/o left ear pain, greenish discharge from her left ear and pain in left sinus and left jaw since yesterday. She denies any fever or chills. She has been having worsening allergy symptoms recently. Related Data Home Medications Medication Instructions Recorded Confirmed cyanocobalamin (vitamin B-12) 1 ml IM WEEKLY Supplement 04/15/21 04/23/21 1,000 mcg/mL injection solution multivitamin with minerals-ferrous 1 tab PO DAILY Supplement 04/15/21 04/23/21 fumarate 15 mg iron tablet omeprazole 40 mg capsule,delayed 40 mg PO DAILY Acid reflux 04/15/21 04/23/21 release prednisone 20 mg tablet 20 mg PO BID Throat infection 06/16/21 06/24/21 Previous Rx's Medication Instructions Recorded azithromycin 250 mg tablet 250 mg PO UD DOSE PK #6 tabs 07/11/22 (Zithromax) methylprednisolone 4 mg tablets in 4 mg PO DIRECTED #21 tabs 07/11/22 a dose pack Allergies Allergy/AdvReac Type Severity Reaction Status Date / Time sulfamethoxazole Allergy Mild Nausea Verified 04/23/21 15:03 [From Bactrim] trimethoprim [From Bactrim] Allergy Mild Nausea Verified 04/23/21 15:03 Penicillins Allergy Unknown Unknown Verified 04/23/21 15:03 allergy reaction ciprofloxacin Allergy Unknown Verified 04/23/21 15:03 allergy reaction citalopram Allergy Verified 07/11/22 13:26 doxycycline Allergy Verified 07/11/22 13:26 PFSH PFSH Medical History Anxiety Depression History of gastroesophageal reflux (GERD) Thyroid disease Urinary tract infection Social History Smoking Status: Former smoker alcohol intake: never current occupational status: unemployed Travel in the last 8 weeks: None household members: friend(s) housing: apartment caffeine: No ROS Obtained: Yes All systems reviewed & no additional complaints except as documented Constitutional Constitutional: Denies chills, Reports fever(s) and Reports poor appetite Eyes Eyes: Denies eye discharge ENT Ears, Nose, Mouth, and Throat: Denies ear discharge, Reports otalgia, Denies hearing loss, Denies sinus pain and Reports sore throat Cardiovascular Cardiovascular: Denies chest pain and Denies dyspnea Respiratory Resp
[2022-07-11 13:32] VITALS: BP 145/77; PULSE 101; RESP 18; TEMP 36.7; O2SAT 99
== END 2022-07-11 13:36 | disposition home or self-care (01) ==
LOC: ER 13:01 → UTC 13:02
PROVIDERS: Emergency Provider Nurse Practitioner Family; PCP Family Medicine
DX: H66.90 Otitis media, unspecified, unspecified ear (principal)
CPT/HCPCS: 99212; G0463

== ENCOUNTER → 2023-08-09 08:11 | Outpatient (CLI) | payer MEDICAID, SELFPAY ==
[2023-08-09 19:08] LABS: Adenovirus,PCR Not Detected (NotDetected); Coronavirus 229E Not Detected (NotDetected); Coronavirus NL63 Not Detected (NotDetected); Coronavirus OC43 Not Detected (NotDetected); Coronovirus HKU1,PCR Not Detected (NotDetected); Human Metapneumovirus Not Detected (NotDetected); Influenza A, PCR Not Detected (NotDetected); Influenza AH1, 2009 Not Detected (NotDetected); Influenza AH1, PCR Not Detected (NotDetected); Influenza AH3,PCR Not Detected (NotDetected); Influenza B, PCR Not Detected (NotDetected); Parainfluenza 1, PCR Not Detected (NotDetected); Parainfluenza 2, PCR Not Detected (NotDetected); Parainfluenza 3, PCR Not Detected (NotDetected); Parainfluenza 4, PCR Not Detected (NotDetected); Respiratory Syncytial Virus Not Detected (NotDetected); Rhinovirus/Enterovirus Not Detected (NotDetected)
[2023-08-09 21:37] LABS: Coronavirus 19, PCR Detected (NotDetected)
== END ==
PROVIDERS: PCP Nurse Practitioner; Visit Provider Nurse Practitioner
DX: U07.1 COVID-19; J02.0 Streptococcal pharyngitis; B95.0 Streptococcus, group A, as the cause of diseases classified elsewhere
CPT/HCPCS: 87632; 87635

== ENCOUNTER 2024-03-05 09:32 | Outpatient (CLI) | payer MEDICAID, SELFPAY | END 2024-03-05 23:59 | disposition home or self-care (01) | LOC: LAB.DROPOF 03-07 09:33 | PROVIDERS: PCP Nurse Practitioner; Visit Provider Nurse Practitioner | DX: R30.0 Dysuria (principal) | CPT/HCPCS: 87086 ==

== ENCOUNTER 2025-02-20 14:33 | Outpatient (CLI) | payer MEDICAID, SELFPAY ==
[2025-02-20 18:23] LABS: Basophils # 0.1 K/mm3 (0-0.2); Basophils % 0.6 % (0.1-2.0); Eosinophils # 0.2 Kmm3 (0.0-0.4); Eosinophils % 1.7 % (0.1-12.0); Hematocrit 44.2 % (37.0-47.0); Hemoglobin 14.4 g/dL (12.2-16.2); Lymphocytes # 2.5 K/mm3 (0.7-4.5); Lymphocytes % 29.1 % (10-50); Mean Corpuscular HGB Conc 32.6 g/dL (31.8-35.4); Mean Corpuscular Hemoglobin 28.6 pg (27.0-31.2); Mean Corpuscular Volume 87.7 fl (81-99); Mean Platelet Volume 10.7 fl (7.4-10.4); Monocytes # 0.6 K/mm3 (0.1-1.0); Monocytes % 6.5 % (1.7-9.3); Neutrophils # 5.4 K/mm3 (1.8-7.8); Neutrophils % 61.9 % (37.0-80.0); Nucleated Red Blood Cells # 0 10^3/uL; Nucleated Red Blood Cells % 0 %; Platelet Count 266 K/mm3 (142-424); Red Blood Count 5.04 M/mm3 (4.20-5.40); Red Cell Distribution Width-SD 41.4 fL; White Blood Count 8.7 K/mm3 (4.8-10.8)
[2025-02-20 18:50] LABS: Alanine Aminotransferase 25 U/L (12-78); Albumin Level 4.1 g/dl (3.5-5.0); Albumin/Globulin Ratio 1.3 (1.1-1.8); Alkaline Phosphatase 119 U/L (38-126); Anion Gap 14.7 mEq/L (5-15); Aspartate Amino Transferase 25 U/L (14-36); Bilirubin,Total 0.5 mg/dl (0.2-1.3); Blood Urea Nitrogen 11 mg/dl (7-17); Calcium 9.2 mg/dl (8.4-10.2); Carbon Dioxide 29 mmol/L (22.0-30.0); Chloride 105 mmol/L (98-107); Estimated Glomerular Filt Rate 98 ml/min (>60); GFR (African American) 119 ML/MIN (>60); Globulin 3.2 g/dL (1.3-3.2); Glucose 96 mg/dl (74-100); Potassium 4.7 mmoL/L (3.5-5.1); Sodium 144 mmol/L (136-145); Total Protein,Serum 7.3 g/dl (6.3-8.2)
[2025-02-20 19:00] LABS: Free T4 (Free Thyroxine) 1.76 ng/dl (0.78-2.19)
[2025-02-20 19:16] LABS: Thyroid Stimulating Hormone 0.77 uIU/mL (0.465-4.68)
[2025-02-20 19:20] LABS: Hemoglobin A1C 4.8 % (4.0-6.0)
[2025-02-20 19:34] LABS: Vitamin B12 349 pg/mL (239-931)
[2025-02-20 19:43] LABS: 25-OH Vitamin D, Total 19.9 ng/mL (30-100)
== END 2025-02-20 23:59 | disposition home or self-care (01) ==
LOC: LAB.DROPOF 02-21 09:44
PROVIDERS: PCP Nurse Practitioner; Visit Provider Nurse Practitioner
DX: Z13.1 Encounter for screening for diabetes mellitus (principal); E55.9 Vitamin D deficiency, unspecified; E03.9 Hypothyroidism, unspecified; F41.9 Anxiety disorder, unspecified; F32.A Depression, unspecified; G43.909 Migraine, unspecified, not intractable, without status migrainosus; Z68.41 Body mass index [BMI] 40.0-44.9, adult; E66.9 Obesity, unspecified
CPT/HCPCS: 80053; 82306; 82607; 83036; 84439; 84443; 85025